=== PATIENT | male | born 1975 | race Caucasian/White ===

== ENCOUNTER 2023-10-09 14:06 | Emergency (ER) | payer BC, OTHER ==
[~2023-10-09] VITALS: Ht 175.3 cm; Wt 81.6 kg
[2023-10-09 14:20] VITALS: TEMP 98.4
[2023-10-09] MEDS ORDERED: IBUPROFEN 600 MG TABLET ONE (14:40)
[2023-10-09] MEDS ORDERED: IBUPROFEN 600 MG TABLET PO ONE (15:00)
[2023-10-09] MEDS ORDERED: IBUP-1953 PO (16:02)
[2023-10-09 16:44] VITALS: BP 128/84; O2SAT 97
== END 2023-10-09 16:45 | disposition home or self-care (01) ==
LOC: ER 14:06
DX: S92.111A Displaced fracture of neck of right talus, initial encounter for closed fracture (principal); S70.11XA Contusion of right thigh, initial encounter; V09.9XXA Pedestrian injured in unspecified transport accident, initial encounter; Y93.K1 Activity, walking an animal; Y92.89 Other specified places as the place of occurrence of the external cause; Y99.8 Other external cause status
CPT/HCPCS: 73552; 73610-TC; 73630-TC; 93971-TC